=== PATIENT | male | born 1990 | race Caucasian/White ===

== ENCOUNTER 2020-12-04 06:36 | Emergency (ER) | payer OTHER ==
[~2020-12-04] VITALS: Ht 182.9 cm; Wt 134.5 kg
[2020-12-04 06:42] VITALS: BP 167/93
--- NOTE | 2020-12-04 06:54 | PHYS DOC ---
Past History Past Surgical History: No Surgical History General Adult EDM: Chief Complaint: DENTAL PROBLEM HPI: HPI: 30-year-old male presents with left upper abdominal pain. He has had pain in increased swelling for the last 3 days. The pain is now severe. He can feel inflammation and fluid in his left cheek all the way up to under his eye. He feels like there is a protrusion of his gums near his left incisor. He denies fever or chills. He has no other complaints at this time. Review of Systems: Review of Systems: Constitutional: Denies fever or chills Eyes: Denies change in visual acuity HENT: Denies nasal congestion or sore throat. Dental abscess. Respiratory: Denies cough or shortness of breath Cardiovascular: Denies chest pain or edema GI: Denies abdominal pain, nausea, vomiting, bloody stools or diarrhea : Denies dysuria Musculoskeletal: Denies back pain or joint pain Integument: Denies rash Neurologic: Denies headache, focal weakness or sensory changes Endocrine: Denies polyuria or polydipsia Lymphatic: Denies swollen glands Psychiatric: Denies depression or anxiety Current Medications: Current Meds: Current Medications Medications (Trade) Dose Ordered Sig/Mingo Start Time Stop Time Status Last Admin Dose Admin Lidocaine HCl (Viscous Lidocaine) 15 ml 1X ONCE 12/04/20 07:00 12/04/20 07:01 UNV Morphine Sulfate (Morphine 4mg Syringe) 4 mg 1X ONCE 12/04/20 07:00 12/04/20 07:01 UNV Ondansetron HCl (Zofran Odt) 4 mg 1X ONCE 12/04/20 07:00 12/04/20 07:01 UNV Allergies: Allergies: Allergies Coded Allergies Type Severity Reaction Last Updated Verified No Known Drug Allergies 12/04/20 No Physical Exam: PE: Constitutional: Well developed, well nourished, no acute distress, non-toxic appearance. [] HENT: Normocephalic, atraumatic, bilateral external ears normal, oropharynx moist, no oral exudates, nose normal. Swelling of the left cheek and left upper gums consistent with abscess. [] Eyes: PERRLA, EOMI, conjunctiva normal, no discharge. [] Neck: Normal range of motion, no tenderness, supple, no stridor. [] Cardiovascular: Heart rate regular rhythm, no murmur [] Lungs & Thorax: Bilateral breath sounds clear to auscultation [] Abdomen: Bowel sounds normal, soft, no tenderness, no masses, no pulsatile masses. [] Skin: Warm, dry, no erythema, no rash. [] Back: No tenderness, no CVA tenderness. [] Extremities: No tenderness, no cyanosis, no clubbing, ROM intact, no edema. [] Neurologic: Alert and oriented X 3, normal motor function, normal sensory function, no focal deficits noted. [] Psychologic: Affect normal, judgement normal, mood normal. [] Current Patient Data: Vital Signs: Vital Signs Date Time Temp Pulse Resp B/P (MAP) Pulse Ox O2 Delivery O2 Flow Rate FiO2 12/04/20 06:42 98.0 79 18 167/93 (117) 99 Room Air EKG: EKG: [] Radiology/Procedures: Radiology/Procedures: [] Heart Score: C/O Chest Pain: N/A Risk Factors: Risk Factors: DM, Current or recent (<one month) smoker, HTN, HLP, family history of CAD, obesity. Risk Scores: Score 0 - 3: 2.5% MACE over next 6 weeks - Discharge Home Score 4 - 6: 20.3% MACE over next 6 weeks - Admit for Clinical Observation Score 7 - 10: 72.7% MACE over next 6 weeks - Early Invasive Strategies Course & Med Decision Making: Course & Med Decision Making Pertinent Labs and Imaging studies reviewed. (See chart for details) The patient appears to have a dental abscess. I have ordered 4 mg of morphine IM, 4 mg of Zofran ODT, and viscous lidocaine to numb the area. We will perform an incision and drain. See note below for more details. The patient is already on clindamycin which is an appropriate treatment. He is concerned that it is not working. I will add Augmentin and have him take both. I will also give him a short course of Harrison 5/325. I stressed the importance of getting into a dentist in the next couple of days and working out the financial situation later. The patient does have insurance. He states verbal understanding. He is stable for discharge at this time. [] Dragon Disclaimer: Dragon Disclaimer: This electronic medical record was generated, in whole or in part, using a voice recognition dictation system. Incision and Drainage Indication: Dental abscess Procedure: I obtained verbal consent from the patient for incision and drainage of his dental abscess. The area of gums was anesthetized with viscous lidocaine. Then made a small incision with a #11 blade. There was bloody material but no obvious purulent material. The area did seem to have decreased pressure. The patient tolerated the procedure, but was very apprehensive and had some discomfort. Complications: No obvious purulent material. Departure Departure: Impression: Primary Impression: Dental abscess Disposition: HOME / SELF CARE / HOMELESS Condition: STABLE Referrals: PCP,UNKNOWN (PCP) Patient Instructions: Dental Abscess Scripts Hydrocodone/Acetaminophen (Hydrocodone-Acetamin 5-325 mg) 1 Each Tablet 1 EACH PO Q4-6HRS PRN for PAIN, #10 TAB Prov: CHIVO COREA DO 12/04/20 Amoxicillin/Potassium Clav (AUGMENTIN 875-125 TABLET) 1 Each Tablet 1 TAB PO BID for dental abscess for 7 Days, #14 TAB 0 Refills Prov: CHIVO COREA DO 12/04/20 CHIVO COREA DO Dec 04, 2020 06:54
[2020-12-04] MEDS ORDERED: ONDANSETRON ODT 4 MG TAB.RAPDIS PO ONE (07:00)
[2020-12-04] MEDS ORDERED: LIDOCAINE 2% VISCOUS 15 ML SOLUTION. SWSW ONE (07:00)
[2020-12-04] MEDS ORDERED: MORPHINE SULFATE 4 MG/ML DISP.SYRIN. IM ONE (07:00)
[2020-12-04] MEDS ORDERED: AMOX1TAB61 PO (07:41)
[2020-12-04] MEDS ORDERED: HYDR-2759 PO (07:41)
== END 2020-12-04 07:49 | disposition home or self-care (01) ==
LOC: ER 06:36
DX: K04.7 Periapical abscess without sinus (principal)
CPT/HCPCS: 41800; 96372; 99284; J2270; Q0162